=== PATIENT | female | born 2000 | race Caucasian/White ===

== ENCOUNTER 2020-08-20 16:34 | Emergency (ER) | payer OTHER ==
[2020-08-20 16:44] VITALS: BP 118/71; PULSE 94; TEMP 98.3; BMI 22.6
[2020-08-20] MEDS ORDERED: ALBUTEROL SO4 2.5/IPRATROPIUM 0.5 INH SOL 3 ML VIAL.NEB. NEB ONE ×2 (16:54→17:09)
[2020-08-20] MEDS ORDERED: predniSONE 20 MG TABLET (UD) PO ONE (16:54)
[2020-08-20] MEDS ORDERED: predniSONE 20 MG TABLET (UD) ONE (17:09)
== END 2020-08-20 19:30 | disposition home or self-care (01) ==
LOC: JER 16:34
PROC: 3E0F7GC Introduction of Other Therapeutic Substance into Respiratory Tract, Via Natural or Artificial Opening (ICD-10-PCS; principal; 2020-08-20)
DX: J45.901 Unspecified asthma with (acute) exacerbation (principal)
CPT/HCPCS: 71046-TC-FY; 99283-25

== ENCOUNTER 2021-03-29 21:35 | Inpatient (IN) | payer OTHER ==
[2021-03-29] MEDS ORDERED: morphine CARPU-JECT 4 MG/1 ML DISP.SYRIN IVPUSH ONE ×2 (22:54→23:55)
[2021-03-29] MEDS ORDERED: morphine SULFATE 4 MG/ML VIAL ONE (22:56)
[2021-03-29 23:18] LABS: BASO % 0.3 % (0-2.0); EOS % 0.7 % (0-4.5); HEMOGLOBIN 13.5 GM/dL (10.7-15.3); LYMPH % 11.1 % (8-40); MCH 29.3 pg (25.7-33.7); MCHC 32.9 g/dl (32.0-36.0); MEAN CELL VOLUME 88.9 fl (80-96); MEAN PLT VOLUME 6.5 fl (7.5-11.1); MONO % 5.8 % (3.8-10.2); NEUT % 82.1 % (42.8-82.8); PLATELET COUNT 289 10^3/uL (134-434); RBC 4.61 M/mm3 (3.60-5.2); RDW 13.4 % (11.6-15.6); WHITE BLOOD COUNT 12.9 K/mm3 (4.0-10.0)
[2021-03-29 23:24] LABS: EPI CELLS 35 /uL (0-25.1); HYALINE CASTS 16 /uL (0-3.1); PH,URINE >= 9.0 (5.0-8.0); URINE APPEARANCE CLOUDY; URINE BACTERIA >9,000 /uL (0-1359); URINE BILIRUBIN NEGATIVE (NEGATIVE); URINE COLOR YELLOW; URINE GLUCOSE (UA) NEGATIVE (NEGATIVE); URINE KETONE NEGATIVE (NEGATIVE); URINE LEUK ESTERASE 2+ (NEGATIVE); URINE NITRITE POSITIVE (NEGATIVE); URINE PROTEIN 2+ (NEGATIVE); URINE RBC 14 /uL (0-23.9); URINE UROBILINOGEN 0.2 mg/dL (0.2-1.0); URINE WBC 625 /uL (0-25.8)
[2021-03-29 23:25] LABS: HCG,QUALITATIVE URINE Negative
[2021-03-29 23:42] LABS: CALCIUM 9.1 mg/dL (8.5-10.1)
[2021-03-29 23:43] LABS: ALBUMIN 3.8 g/dl (3.4-5.0); BLOOD UREA NITROGEN 13.4 mg/dL (7-18)
[2021-03-29 23:45] LABS: CREATININE 1.1 mg/dL (0.55-1.3)
[2021-03-29 23:47] LABS: BILIRUBIN,TOTAL 0.5 mg/dL (0.2-1); TOT PROT 7.9 g/dl (6.4-8.2)
[2021-03-29] MEDS ORDERED: KETOROLAC TROMETHAMINE 15 MG/ML VIAL IVPUSH ONE (23:55)
[2021-03-30] MEDS ORDERED: morphine SULFATE 4 MG/ML VIAL ONE ×2 (00:11→20:12)
[2021-03-30] MEDS ORDERED: KETOROLAC TROMETHAMINE 15 MG/ML VIAL ONE (00:11)
[2021-03-30] MEDS ORDERED: CEFTRIAXONE 1 GM/50 ML BAG ONE ×2 (00:39→18:08)
[2021-03-30] MEDS ORDERED: ONDANSETRON 4 MG/2 ML VIAL IVPUSH ONE ×2 (02:10→04:57)
[2021-03-30] MEDS ORDERED: ONDANSETRON 4 MG/2 ML VIAL ONE ×4 (02:11→20:12)
[2021-03-30] MEDS ORDERED: SODIUM CHLORIDE 1,000 ML IV STA (04:57)
[2021-03-30] MEDS ORDERED: ACETAMINOPHEN 325 MG TABLET (FP) PO PRN (05:32)
[2021-03-30] MEDS ORDERED: ONDANSETRON 4 MG/2 ML VIAL IVPUSH PRN ×2 (05:35→18:57)
[2021-03-30] MEDS: SODIUM CHLORIDE 1,000 ML IV SCH (06:15)
[2021-03-30 08:59] LABS: BLOOD UREA NITROGEN 15.5 mg/dL (7-18); CALCIUM 8.5 mg/dL (8.5-10.1)
[2021-03-30 09:00] LABS: MAGNESIUM 1.8 mg/dL (1.8-2.4)
[2021-03-30 09:03] LABS: CREATININE 1.3 mg/dL (0.55-1.3)
[2021-03-30 09:04] LABS: BILIRUBIN,TOTAL 0.6 mg/dL (0.2-1); TOT PROT 6.6 g/dl (6.4-8.2)
[2021-03-30 09:06] LABS: ALBUMIN 3.1 g/dl (3.4-5.0)
[2021-03-30] MEDS ORDERED: TAMSULOSIN HCL 0.4 MG CAP ONE (09:18)
[2021-03-30] MEDS: TAMSULOSIN HCL 0.4 MG CAP PO SCH (09:21)
[2021-03-30] MEDS: CEFTRIAXONE 1 GM in DEXTROSE 5%-WATER - 50 ML IVPB SCH (18:05)
[2021-03-30] MEDS ORDERED: morphine SULFATE 4 MG/ML VIAL IVPUSH PRN (18:56)
[2021-03-31 02:22] VITALS: BMI 23.0
[2021-03-31] MEDS ORDERED: ACETAMINOPHEN 1000 MG/100 ML BAG IVPB ONE (05:43)
[2021-03-31] MEDS: SODIUM CHLORIDE 1,000 ML IV SCH ×4 (06:05→22:22)
[2021-03-31] MEDS ORDERED: cefTRIAXone SODIUM 1 GM VIAL ONE (09:07)
[2021-03-31] MEDS ORDERED: PT OWN MED DRAWER 7, Y5N ONE (09:07)
[2021-03-31] MEDS ORDERED: DEXTROSE 5%-WATER - 50 ML IVPB ONE (09:07)
[2021-03-31 09:20] LABS: HEMATOCRIT 35.4 % (32.4-45.2); HEMOGLOBIN 11.6 GM/dL (10.7-15.3); MCH 29.5 pg (25.7-33.7); MCHC 32.7 g/dl (32.0-36.0); MEAN CELL VOLUME 90.2 fl (80-96); MEAN PLT VOLUME 7.4 fl (7.5-11.1); PLATELET COUNT 195 10^3/uL (134-434); RBC 3.93 M/mm3 (3.60-5.2); RDW 13.3 % (11.6-15.6); WHITE BLOOD COUNT 9.7 K/mm3 (4.0-10.0)
[2021-03-31] MEDS: CEFTRIAXONE 1 GM in DEXTROSE 5%-WATER - 50 ML IVPB SCH (09:32)
[2021-03-31] MEDS: TAMSULOSIN HCL 0.4 MG CAP PO SCH (09:32)
[2021-03-31 09:37] LABS: CALCIUM 8.3 mg/dL (8.5-10.1)
[2021-03-31 09:38] LABS: BLOOD UREA NITROGEN 17.1 mg/dL (7-18)
[2021-03-31 09:41] LABS: CREATININE 1.6 mg/dL (0.55-1.3)
[2021-03-31] MEDS ORDERED: DEXAMETHASONE SOD PHOSPHATE 4 MG/1 ML VIAL ONE (13:50)
[2021-03-31] MEDS ORDERED: PROPOFOL 20 ML ONE (13:50)
[2021-03-31] MEDS ORDERED: ceFAZolin SODIUM 1 GM VIAL ONE (13:50)
[2021-03-31] MEDS ORDERED: MIDAZOLAM HCL 2 MG/2 ML SINGLE DOSE VIAL ONE (13:50)
[2021-03-31] MEDS ORDERED: GENTAMICIN SO4 80 MG/2 ML VIAL IVPB ONE (14:01)
[2021-03-31] MEDS ORDERED: ACETAMINOPHEN 325 MG TABLET (FP) PO PRN (14:54)
[2021-03-31] MEDS ORDERED: ONDANSETRON 4 MG/2 ML VIAL IVPUSH PRN (14:54)
[2021-03-31] MEDS ORDERED: LACTATED RINGERS SOLUTION 1,000 ML IV SCH (15:15)
[2021-03-31] MEDS: ACETAMINOPHEN 325 MG TABLET (FP) PO PRN (21:30)
[2021-03-31] MEDS ORDERED: ACETAMINOPHEN 325 MG TABLET (FP) PO ONE (21:31)
[2021-03-31] MEDS: morphine SULFATE 4 MG/ML VIAL IVPUSH PRN (23:01)
[2021-04-01] MEDS: morphine SULFATE 4 MG/ML VIAL IVPUSH PRN (05:47)
[2021-04-01] MEDS: SODIUM CHLORIDE 1,000 ML IV SCH (05:51)
[2021-04-01] MEDS ORDERED: TAMSULOSIN HCL 0.4 MG CAP PO SCH (08:30)
[2021-04-01] MEDS ORDERED: CEFTRIAXONE 1 GM in DEXTROSE 5%-WATER - 50 ML IVPB SCH (10:00)
[2021-04-01] MEDS ORDERED: SULFAMETHOXAZOLE/TRIMETHOPRIM 800MG/160MG D.S. TABLET PO SCH (10:00)
[2021-04-01 12:01] LABS: HEMATOCRIT 33.5 % (32.4-45.2); MCH 29.3 pg (25.7-33.7); MEAN PLT VOLUME 7.4 fl (7.5-11.1); PLATELET COUNT 224 10^3/uL (134-434); RBC 3.77 M/mm3 (3.60-5.2); RDW 13.2 % (11.6-15.6); WHITE BLOOD COUNT 7.5 K/mm3 (4.0-10.0)
[2021-04-01 12:24] LABS: ALBUMIN 2.5 g/dl (3.4-5.0)
[2021-04-01 12:25] LABS: BLOOD UREA NITROGEN 11.9 mg/dL (7-18)
[2021-04-01 12:27] LABS: CREATININE 0.8 mg/dL (0.55-1.3)
[2021-04-01 12:28] LABS: MAGNESIUM 2.3 mg/dL (1.8-2.4); PHOSPHOROUS 1.5 mg/dL (2.5-4.9)
[2021-04-01 12:29] LABS: BILIRUBIN,TOTAL 0.1 mg/dL (0.2-1); CALCIUM 8.1 mg/dL (8.5-10.1); TOT PROT 5.8 g/dl (6.4-8.2)
[2021-04-01] MEDS ORDERED: SODIUM PHOSPHATE - 30 MM in SODIUM CHLORIDE 500 ML IVPB ONE (13:16)
[2021-04-01 14:21] VITALS: BP 106/63; PULSE 82; TEMP 98
[2021-04-01] MEDS ORDERED: NAPH,MB-DB/K PH,MBDB POWDER PACKET PO ONE (14:49)
[2021-04-01] MEDS: NAPH,MB-DB/K PH,MBDB POWDER PACKET PO SCH ×2 (15:29→16:52)
[2021-04-01] MEDS: ACETAMINOPHEN 325 MG TABLET (FP) PO PRN (16:51)
== END 2021-04-01 20:37 | disposition home or self-care (01) | DRG 463 ==
LOC: JER 21:35 → JERBED 03-30 01:45 → J6S 03-31 02:11
PROVIDERS: ADMIT Hospitalist; ATTEND Internal Medicine
PROC: 0TJB8ZZ Inspection of Bladder, Via Natural or Artificial Opening Endoscopic (ICD-10-PCS; 2021-03-31)
PROC: BT1FZZZ Fluoroscopy of Left Kidney, Ureter and Bladder (ICD-10-PCS; 2021-03-31)
PROC: 0T778DZ Dilation of Left Ureter with Intraluminal Device, Via Natural or Artificial Opening Endoscopic (ICD-10-PCS; principal; 2021-03-31 14:00)
DX: N13.6 Pyonephrosis (principal); N17.9 Acute kidney failure, unspecified; E83.39 Other disorders of phosphorus metabolism; J45.909 Unspecified asthma, uncomplicated; R50.9 Fever, unspecified
CPT/HCPCS: 36415; 74176-TC; 76000-TC-FY; 80048; 80053; 81003; 83690; 83735; 84100; 84703; 85025; 85027; 87040; 87086; 87186; 93005; 93010; 94760; 99285-25; C9803; J0131; U0003; U0005

== ENCOUNTER 2021-04-09 04:39 | Day surgery (SDC) | payer OTHER ==
[2021-04-08 11:28] VITALS: BMI 23.6
[2021-04-09] MEDS ORDERED: PROMETHAZINE HCL 25 MG/1 ML VIAL IVPUSH PRN (13:53)
[2021-04-09] MEDS ORDERED: ONDANSETRON 4 MG/2 ML VIAL IVPUSH PRN (13:53)
[2021-04-09] MEDS ORDERED: LACTATED RINGERS SOLUTION 1,000 ML IV SCH (14:00)
[2021-04-09] MEDS ORDERED: MIDAZOLAM HCL 2 MG/2 ML SINGLE DOSE VIAL ONE (15:05)
[2021-04-09] MEDS ORDERED: ceFAZolin SODIUM 1 GM VIAL IVPB ONE (15:30)
[2021-04-09] MEDS ORDERED: LIDOCAINE HCL/PF 2% SDV 5ML VIAL ONE (15:40)
[2021-04-09] MEDS ORDERED: ceFAZolin SODIUM 1 GM VIAL ONE (15:40)
[2021-04-09] MEDS ORDERED: DEXAMETHASONE SOD PHOSPHATE 4 MG/1 ML VIAL ONE (15:40)
[2021-04-09 17:54] VITALS: TEMP 98
[2021-04-09 18:25] VITALS: BP 105/72; PULSE 62
[2021-04-09] MEDS ORDERED: ONDANSETRON *ODT* 4 MG TABLET ONE (18:37)
[2021-04-09] MEDS ORDERED: ONDANSETRON 4 MG TABLET PO ONE ×2 (18:38→18:40)
[2021-04-17 13:08] LABS: SIZE 4X2
[2021-04-17 13:09] LABS: WEIGHT 45MG
== END 2021-04-09 18:55 | disposition home or self-care (01) ==
LOC: JASU-SURG 04:39
PROVIDERS: ATTEND Urology
PROC: 0TC78ZZ Extirpation of Matter from Left Ureter, Via Natural or Artificial Opening Endoscopic (ICD-10-PCS; principal; 2021-04-09 14:30)
PROC: 0T778DZ Dilation of Left Ureter with Intraluminal Device, Via Natural or Artificial Opening Endoscopic (ICD-10-PCS; 2021-04-09 14:30)
DX: N20.1 Calculus of ureter (principal)
CPT/HCPCS: 36415; 81025; 82360; 88300-TC; 94760; Q0162

== ENCOUNTER 2021-08-04 05:00 | Emergency (ER) | payer OTHER ==
[2021-08-04 05:15] VITALS: BP 115/62; PULSE 81; TEMP 98.2; BMI 22.6
[2021-08-04] MEDS ORDERED: ACETAMINOPHEN 325 MG TABLET (FP) PO ONE (05:40)
[2021-08-04] MEDS ORDERED: MAG HYDROX/AL HYDROX/SIMETH 30 ML UNIT-DOSE CUP PO ONE (05:40)
[2021-08-04] MEDS ORDERED: SUCRALFATE 1 GM TABLET (FP) PO ONE (05:40)
[2021-08-04] MEDS ORDERED: FAMOTIDINE 10 MG TABLET PO ONE (05:40)
[2021-08-04] MEDS ORDERED: FAMOTIDINE 20 MG TABLET ONE (05:49)
[2021-08-04] MEDS ORDERED: SUCRALFATE 1 GM TABLET (FP) ONE (05:49)
[2021-08-04] MEDS ORDERED: MAG HYDROX/AL HYDROX/SIMETH 30 ML UNIT-DOSE CUP ONE (05:50)
[2021-08-04] MEDS ORDERED: ACETAMINOPHEN 325 MG TABLET (FP) ONE (05:50)
[2021-08-04 06:24] LABS: URINE APPEARANCE CLEAR; URINE BILIRUBIN NEGATIVE (NEGATIVE); URINE COLOR YELLOW; URINE GLUCOSE (UA) NEGATIVE (NEGATIVE); URINE KETONE NEGATIVE (NEGATIVE); URINE LEUK ESTERASE NEGATIVE (NEGATIVE); URINE NITRITE NEGATIVE (NEGATIVE); URINE PROTEIN NEGATIVE (NEGATIVE); URINE UROBILINOGEN 0.2 mg/dL (0.2-1.0)
[2021-08-04 06:26] LABS: HCG,QUALITATIVE URINE Negative
== END 2021-08-04 06:41 | disposition home or self-care (01) ==
LOC: JER 05:00
DX: K52.9 Noninfective gastroenteritis and colitis, unspecified (principal)
CPT/HCPCS: 81003; 84703; 99283-25

== ENCOUNTER 2021-11-27 11:38 | Emergency (ER) | payer OTHER ==
[2021-11-27 11:56] VITALS: BP 104/65; PULSE 82; RESP 18; TEMP 98.2; BMI 22.6
[2021-11-27 14:20] LABS: BASO % 0.7 % (0-2.0); EOS % 7.7 % (0-4.5); HEMATOCRIT 42.3 % (32.4-45.2); HEMOGLOBIN 13.9 GM/dL (10.7-15.3); MCH 29.6 pg (25.7-33.7); MCHC 32.9 g/dl (32.0-36.0); MEAN CELL VOLUME 90.2 fl (80-96); MEAN PLT VOLUME 7.2 fl (7.5-11.1); MONO % 10.6 % (3.8-10.2); PLATELET COUNT 253 10^3/uL (134-434); RBC 4.69 M/mm3 (3.60-5.2); RDW 13.4 % (11.6-15.6); WHITE BLOOD COUNT 5.6 K/mm3 (4.0-10.0)
[2021-11-27 14:27] LABS: EPI CELLS 21 /uL (0-25.1); HYALINE CASTS 0 /uL (0-3.1); PH,URINE 7.5 (5.0-8.0); URINE APPEARANCE TURBID; URINE BACTERIA 209 /uL (0-1359); URINE BILIRUBIN NEGATIVE (NEGATIVE); URINE COLOR YELLOW; URINE GLUCOSE (UA) NEGATIVE (NEGATIVE); URINE KETONE NEGATIVE (NEGATIVE); URINE LEUK ESTERASE TRACE (NEGATIVE); URINE NITRITE NEGATIVE (NEGATIVE); URINE PROTEIN NEGATIVE (NEGATIVE); URINE RBC 5 /uL (0-23.9); URINE UROBILINOGEN 0.2 mg/dL (0.2-1.0); URINE WBC 16 /uL (0-25.8)
[2021-11-27 14:38] LABS: BLOOD UREA NITROGEN 15.6 mg/dL (7-18)
[2021-11-27 14:40] LABS: CREATININE 0.8 mg/dL (0.55-1.3)
[2021-11-27 14:42] LABS: BILIRUBIN,TOTAL 0.6 mg/dL (0.2-1); TOT PROT 8.3 g/dl (6.4-8.2)
== END 2021-11-27 15:22 | disposition home or self-care (01) ==
LOC: JERFT 11:38 → JER 11:38 → JERFT 15:22
DX: R21 Rash and other nonspecific skin eruption (principal)
CPT/HCPCS: 80053; 81003; 85025; 87086; 99283-25

== ENCOUNTER 2023-07-01 18:31 | Emergency (ER) | payer OTHER ==
[2023-07-01 18:39] VITALS: BP 116/68; PULSE 88; RESP 18; TEMP 98; BMI 23.6
[2023-07-01] MEDS: ALBUTEROL SO4 2.5/IPRATROPIUM 0.5 INH SOL 3 ML VIAL.NEB. NEB ONE (19:40)
[2023-07-01] MEDS ORDERED: ALBUTEROL SO4 2.5/IPRATROPIUM 0.5 INH SOL 3 ML VIAL.NEB. NEB ONE (19:42)
== END 2023-07-01 20:37 | disposition home or self-care (01) ==
LOC: JERFT 18:31
PROC: 3E0F7GC Introduction of Other Therapeutic Substance into Respiratory Tract, Via Natural or Artificial Opening (ICD-10-PCS; principal; 2023-07-01)
DX: R06.02 Shortness of breath (principal); J45.909 Unspecified asthma, uncomplicated
CPT/HCPCS: 99283-25

== ENCOUNTER 2023-09-27 00:09 | Emergency (ER) | payer OTHER ==
[2023-09-27 00:17] VITALS: BP 109/66; PULSE 78; RESP 18; TEMP 98.4; BMI 22.6
[2023-09-27] MEDS ORDERED: ONDANSETRON *ODT* 4 MG TABLET ONE (01:03)
[2023-09-27] MEDS: ONDANSETRON *ODT* 4 MG TABLET SL ONE (01:06)
[2023-09-27] MEDS: LACTATED RINGERS SOLUTION 1000 ML INFUS.BAG IV ONE (01:26)
[2023-09-27 01:36] LABS: PH,URINE 5.5 (5.0-8.0); URINE APPEARANCE CLEAR; URINE BILIRUBIN NEGATIVE (NEGATIVE); URINE COLOR YELLOW; URINE GLUCOSE (UA) NEGATIVE (NEGATIVE); URINE KETONE NEGATIVE (NEGATIVE); URINE LEUK ESTERASE NEGATIVE (NEGATIVE); URINE NITRITE NEGATIVE (NEGATIVE); URINE PROTEIN TRACE (NEGATIVE); URINE UROBILINOGEN 0.2 mg/dL (0.2-1.0)
[2023-09-27 01:37] LABS: BASO % 0.7 % (0-2.0); EOS % 5.4 % (0-4.5); HEMATOCRIT 39.9 % (32.4-45.2); HEMOGLOBIN 13.6 GM/dL (10.7-15.3); LYMPH % 31.3 % (8-40); MCH 30.3 pg (25.7-33.7); MCHC 34.1 g/dl (32.0-36.0); MEAN CELL VOLUME 88.7 fl (80-96); MEAN PLT VOLUME 6.8 fl (7.5-11.1); MONO % 9.1 % (3.8-10.2); NEUT % 53.5 % (42.8-82.8); PLATELET COUNT 277 10^3/uL (134-434); RBC 4.49 M/mm3 (3.60-5.2); RDW 13.8 % (11.6-15.6); WHITE BLOOD COUNT 6.9 K/mm3 (4.0-10.0)
[2023-09-27 02:04] LABS: POTASSIUM 4.4 mmol/L (3.5-5.1)
[2023-09-27 02:06] LABS: BLOOD UREA NITROGEN 14.8 mg/dL (7-18); CALCIUM 9.3 mg/dL (8.5-10.1)
[2023-09-27 02:10] LABS: CREATININE 0.9 mg/dL (0.55-1.3)
[2023-09-27 02:12] LABS: BILIRUBIN,TOTAL 0.4 mg/dL (0.2-1); TOT PROT 8.1 g/dl (6.4-8.2)
== END 2023-09-27 03:00 | disposition home or self-care (01) ==
LOC: JER 00:09
DX: R11.0 Nausea (principal); R42 Dizziness and giddiness
CPT/HCPCS: 36415; 80053; 81003; 84703; 85025; 86850; 86900; 86901; 87086; 93005; 93010; 99284-25; Q0162